=== PATIENT | female | born 1985 | race American Indian/Alaskan Native ===

== ENCOUNTER 2019-11-08 15:44 | Emergency (ER) | payer SELFPAY ==
[2019-11-08] MEDS ORDERED: ONDANSETRON 4 MG ODT TAB PO ONE (19:19)
--- NOTE | 2019-11-08 19:21 | Emergency Department Report ---
Chief Complaint: Upper Respiratory Infection Stated Complaint: FLU SYM - HPI History of Present Illness: 34 y/o F p/w 2 days h/o sore throat, right ear pain, congestion, rhinnorhea n/v. - Exam Vital Signs: Vital Signs 11/08/19 19:27 Temperature 98.6 F Pulse Rate 103 H Respiratory 20 Rate Blood Pressure 136/87 [Left] O2 Sat by Pulse 99 Oximetry MSE screening note: Focused history and physical exam performed. Due to findings the following was ordered: flu swab, rapid strep, cbc, cmp, lipase, u/a, shcg zofran odt ED Disposition for MSE Condition: Stable
[2019-11-08 20:29] LABS: Bilirubin,Urine NEG (Negative); Color,Urine Amber (Yellow)
[2019-11-08 20:30] LABS: Blood,Urine MOD (Negative); Mucus,Urine FEW /HPF
[2019-11-08 21:06] LABS: Basophils % (Auto) 0.2 % (0.0-1.8); Eosinophils % (Auto) 0.2 % (0.0-4.3); Hematocrit 42.2 % (30.3-42.9); Hemoglobin 14.3 gm/dl (10.1-14.3); Lymphocytes # (Auto) 2.6 K/mm3 (1.2-5.4); Lymphocytes % (Auto) 13.9 % (13.4-35.0); Mean Corpuscular HGB Conc 34 % (30-34); Mean Corpuscular Volume 89 fl (79-97); Monocytes # (Auto) 0.9 K/mm3 (0.0-0.8); Monocytes % (Auto) 4.9 % (0.0-7.3); Platelet Count 251 K/mm3 (140-440); Red Blood Count 4.71 M/mm3 (3.65-5.03); Red Cell Distribution Width 12.6 % (13.2-15.2)
[2019-11-08 21:27] LABS: Alanine Aminotransferase 14 units/L (7-56); Albumin 4.2 g/dL (3.9-5); BUN/Creatinine Ratio 7; Blood Urea Nitrogen 4 mg/dL (7-17); Calcium 9.7 mg/dL (8.4-10.2); Hemolysis Index 2
[2019-11-08] MEDS ORDERED: IBUPROFEN 600 MG TAB PO ONE (22:57)
[2019-11-08] MEDS ORDERED: ACETAMINOPHEN 500 MG TAB PO ONE (22:57)
[2019-11-08] MEDS ORDERED: predniSONE 20 MG TAB PO ONE (22:57)
[2019-11-08] MEDS ORDERED: LIDOCAINE-MPF (1%) 10 MG/1 ML VIAL 5 ML INFILTRATI ONE (22:58)
--- NOTE | 2019-11-08 23:21 | XRay Report ---
CHEST 2 VIEWS INDICATION / CLINICAL INFORMATION: cough, fever. COMPARISON: None available. FINDINGS: SUPPORT DEVICES: None. HEART / MEDIASTINUM: No significant abnormality. LUNGS / PLEURA: No significant pulmonary or pleural abnormality. No pneumothorax. ADDITIONAL FINDINGS: No significant additional findings. IMPRESSION: 1. No acute abnormality of the chest. Signer Name: Siddharth Lóepz MD Signed: 11/08/2019 11:17 PM Workstation Name: [id number]
--- NOTE | 2019-11-09 01:05 | Emergency Department Report ---
- General Chief Complaint: Upper Respiratory Infection Stated Complaint: FLU SYM Source: patient Mode of arrival: Ambulatory Limitations: No Limitations - History of Present Illness Initial Comments: Presents to the ED with complaint of acute onset persistent severe diffuse body aches and pains, nasal and sinus congestion, dry cough, sore throat, intermittent fever and chills for the last 3 days. Patient also complaints of nausea, vomiting, diarrhea, lack of appetite, generalized weakness and fatigue. Patient states that other family members had similar symptoms. Patient denies dizziness, syncope, chest pain, shortness of breath, dysuria, urinary frequency and urgency, vaginal bleeding or vaginal discharge. MD Complaint: fever, cough, sore throat, rhinorrhea, nasal congestion, sinus pain, other (diffuse body aches and pains) -: Sudden, days(s) (3) Severity: severe Severity scale (0 -10): 7 Quality: sharp, aching Consistency: constant Improves With: nothing Worsens With: nothing Context: sick contacts Associated Symptoms: denies other symptoms, fever, chills, myalgias, headache, rhinorrhea, nasal congestion, cough. denies: chest pain, shortness of breath, abdominal pain, nausea, vomiting, diarrhea, rash, right sweats, weight loss, epi staxis, hoarseness Treatments Prior to Arrival: none - Related Data Previous Rx's Medication Instructions Recorded Last Taken Type Amoxicillin/Potassium Clav 1 each PO Q12H #20 tablet 11/09/19 Unknown Rx [Augmentin 875-125 Tablet] Benzonatate [Tessalon Perles] 100 mg PO Q8HR #30 capsule 11/09/19 Unknown Rx Cetirizine HCl [Zyrtec 10mg tab] 10 mg PO DAILY #30 tablet 11/09/19 Unknown Rx Ibuprofen [Motrin] 600 mg PO Q8H PRN #24 tablet 11/09/19 Unknown Rx Ondansetron [Zofran Odt] 4 mg PO Q8HR PRN #21 tab.rapdis 11/09/19 Unknown Rx methylPREDNISolone [Medrol 4MG 4 mg PO DAILY #21 tab.ds.pk 11/09/19 Unknown Rx DOSEPAK (21 tabs)] Allergies Allergy/AdvReac Type Severity Reaction Status Date / Time No Known Allergies Allergy Verified 11/08/19 15:50 ED Review of Systems ROS: Stated complaint: FLU SYM Other details as noted in HPI Constitutional: chills, fever, malaise, weakness Eyes: denies: eye pain, eye discharge, vision change ENT: throat pain, congestion, other (nasal and sinus pressure; sore throat). denies: ear pain Respiratory: cough. denies: shortness of breath, wheezing Cardiovascular: denies: chest pain, palpitations Endocrine: no symptoms reported Gastrointestinal: nausea, vomiting, diarrhea. denies: abdominal pain Genitourinary: denies: urgency, dysuria, discharge Musculoskeletal: arthralgia, myalgia. denies: back pain, joint swelling Skin: denies: rash, lesions Neurological: headache. denies: weakness, paresthesias Psychiatric: denies: anxiety, depression Hematological/Lymphatic: denies: easy bleeding, easy bruising ED Past Medical Hx - Past Medical History Previous Medical History?: No - Surgical History Past Surgical History?: No - Social History Smoking Status: Current Every Day Smoker Substance Use Type: None - Medications Home Medications: Home Medications Medication Instructions Recorded Confirmed Last Taken Type Amoxicillin/Potassium Clav 1 each PO Q12H #20 tablet 11/09/19 Unknown Rx [Augmentin 875-125 Tablet] Benzonatate [Tessalon Perles] 100 mg PO Q8HR #30 capsule 11/09/19 Unknown Rx Cetirizine HCl [Zyrtec 10mg tab] 10 mg PO DAILY #30 tablet 11/09/19 Unknown Rx Ibuprofen [Motrin] 600 mg PO Q8H PRN #24 tablet 11/09/19 Unknown Rx Ondansetron [Zofran Odt] 4 mg PO Q8HR PRN #21 tab.rapdis 11/09/19 Unknown Rx methylPREDNISolone [Medrol 4MG 4 mg PO DAILY #21 tab.ds.pk 11/09/19 Unknown Rx DOSEPAK (21 tabs)] ED Physical Exam - General Limitations: No Limitations General appearance: alert, in no apparent distress - Head Head exam: Present: atraumatic, normocephalic, normal inspection - Eye Eye exam: Present: normal appearance, PERRL, EOMI Pupils: Present: normal accommodation - ENT ENT exam: Present: mucous membranes moist, TM's normal bilaterally, normal external ear exam, other (procedure congested nasal passages; palpable severe frontal sinus tenderness; erythematous oropharynx) - Neck Neck exam: Present: normal inspection, full ROM, lymphadenopathy - Respiratory Respiratory exam: Present: normal lung sounds bilaterally. Absent: respiratory distress, wheezes, rales, rhonchi, chest wall tenderness, decreased breath sounds - Cardiovascular Cardiovascular Exam: Present: normal rhythm, tachycardia, normal heart sounds. Absent: systolic murmur, diastolic murmur, rubs, gallop - GI/Abdominal GI/Abdominal exam: Present: soft, normal bowel sounds. Absent: tenderness, guarding, rebound, hyperactive bowel sounds, hypoactive bowel sounds, organomegaly - Extremities Exam Extremities exam: Present: normal inspection, full ROM, normal capillary refill - Back Exam Back exam: Present: normal inspection, full ROM, tenderness (palpable mild lumbar sacral paraspinal musculoskeletal tenderness), paraspinal tenderness. Absent: CVA tenderness (L), muscle spasm, vertebral tenderness - Neurological Exam Neurological exam: Present: alert, oriented X3, CN II-XII intact, normal gait, reflexes normal - Psychiatric Psychiatric exam: Present: normal affect, normal mood - Skin Skin exam: Present: warm, dry, intact, normal color. Absent: rash ED Course Vital Signs 11/08/19 11/08/19 11/08/19 19:27 23:18 23:19 Temperature 98.6 F Pulse Rate 103 H Respiratory 20 20 20 Rate Blood Pressure 136/87 [Left] O2 Sat by Pulse 99 Oximetry 11/09/19 11/09/19 00:18 00:19 Temperature Pulse Rate Respiratory 20 20 Rate Blood Pressure [Left] O2 Sat by Pulse Oximetry ED Medical Decision Making - Lab Data Result diagrams: 11/08/19 20:38 11/08/19 20:38 - Radiology Data Radiology results: report reviewed, image reviewed Chest x-ray shows no acute cardiopulmonary abnormalities or pneumonitis, pleural effusion or pneumothorax - Medical Decision Making This is a 34-year-old female who presented to the ED with complaint of acute onset persistent severe diffuse body aches and pains, nasal and sinus congestion, severe sore throat, frontal sinus pressure and headache, dry cough and generalized weakness. In the ED, patient is alert and oriented 3 and is n ot in any distress but slightly tachycardic in triage. Lab test results were reviewed and shows acute leukocytosis of 19,000, negative rapid influenza tests and significant urinary tract infection characterized by large leukocyte esterase and >80 WBCs. Patient was treated in the ED with Rocephin 1 g intramuscular injection, prednisone and pain medications. On reevaluation, patient felt better and was discharged home on medications and advised to follow-up with her primary care physician in 5-7 days for reevaluation. Patient was advised to return to the ED immediately if symptoms get worse. - Differential Diagnosis Flu; Strep pharyngitis; Pneumonia, UTI; Sinusitis Critical care attestation.: If time is entered above; I have spent that time in minutes in the direct care of this critically ill patient, excluding procedure time. ED Disposition Clinical Impression: Acute urinary tract infection, Acute upper respiratory infection Acute frontal sinusitis, unspecified Qualifiers: Recurrence: not specified as recurrent Qualified Code(s): J01.10 - Acute frontal sinusitis, unspecified Acute bronchitis Qualifiers: Bronchitis organism: unspecified organism Qualified Code(s): J20.9 - Acute bronchitis, unspecified Disposition: TO HOME OR SELFCARE Is pt being admited?: No Does the pt Need Aspirin: No Condition: Stable Instructions: Acute Bronchitis (ED), Urinary Tract Infection in Women (ED), Acute Bacterial Rhinosinusitis (ED), Upper Respiratory Infection (ED) Additional Instructions: Take medications with food, drink plenty of fluids and follow up with your primary care physician in 5-7 days for reevaluation. Return to the ED immediately if symptoms get worse. Prescriptions: Amoxicillin/Potassium Clav [Augmentin 875-125 Tablet] 1 each PO Q12H #20 tablet methylPREDNISolone [Medrol 4MG DOSEPAK (21 tabs)] 4 mg PO DAILY #21 tab.ds.pk Ibuprofen [Motrin] 600 mg PO Q8H PRN #24 tablet PRN Reason: Pain Benzonatate [Tessalon Perles] 100 mg PO Q8HR #30 capsule Ondansetron [Zofran Odt] 4 mg PO Q8HR PRN #21 tab.rapdis PRN Reason: Nausea Cetirizine HCl [Zyrtec 10mg tab] 10 mg PO DAILY #30 tablet Referrals: PRIMARY CARE, [Primary Care Provider] - 3-5 Days Forms: Work/School Release Form(ED) Time of Disposition: 01:12 Print Language: [place]
[2019-11-09 02:36] VITALS: BP 126/77
== END 2019-11-09 02:36 | disposition home or self-care (01) ==
LOC: ED 15:44
DX: J01.10 Acute frontal sinusitis, unspecified (principal); J20.9 Acute bronchitis, unspecified; N39.0 Urinary tract infection, site not specified; J06.9 Acute upper respiratory infection, unspecified; F17.200 Nicotine dependence, unspecified, uncomplicated; Z79.899 Other long term (current) drug therapy
CPT/HCPCS: 36415; 71046; 80053; 81001; 83690; 84703; 85025; 87086; 87116; 87400; 87430; 96365; 99283; J0696; J7512; Q0162